=== PATIENT | male | born 1985 | race Caucasian/White ===

== ENCOUNTER 2024-11-27 19:28 | Emergency (ER) | payer MEDICAID ==
[~2024-11-27] VITALS: Ht 165.1 cm; Wt 73.0 kg
[2024-11-27 19:37] VITALS: O2SAT 99
[2024-11-27] MEDS ORDERED: LORAZEPAM 2MG/ML INJ IM STA (19:52)
[2024-11-27] MEDS: DIPHENHYDRAMINE 50MG/ML VIAL IM STA (20:28)
[2024-11-27] MEDS: HALOPERIDOL LACTATE 5MG/ML VIAL IM STA (20:29)
[2024-11-27] MEDS: LORAZEPAM 2MG/ML UD SYRINGE IM SCH (20:29)
[2024-11-27 20:50] LABS: BASOPHILS % 0.5 % (0.0-2.0); EOSINOPHILS % 3.7 % (0.0-5.0); HEMATOCRIT. 44.2 % (42.0-52.0); HEMOGLOBIN. 14.7 g/dL (14.0-18.0); LYMPHOCYTES % 16.7 % (20.0-50.0); MEAN CORPUSCULAR HEMOGLOBIN 30.3 pg (28.0-32.0); MEAN CORPUSCULAR HGB CONC 33.3 g/dL (31.0-37.0); MEAN CORPUSCULAR VOLUME 91.1 fL (80.0-94.0); MEAN PLATELET VOLUME 8.6 fl (7.4-10.4); MONOCYTES % 3.8 % (2.0-8.0); NEUTROPHILS % 75.3 % (40.0-76.0); PLATELET 221 x1000/uL (130-400); RED BLOOD CELL COUNT 4.85 mill/uL (4.7-6.1); RED CELL DISTRIBUTION WIDTH 14.1 % (11.6-14.6); WHITE BLOOD COUNT 8.8 x1000/uL (4.5-11.0)
[2024-11-27 20:55] LABS: CLARITY URINE CLEAR (CLEAR); COLOR URINE YELLOW (YELLOW); GLUCOSE URINE NEGATIVE (NEGATIVE); KETONES URINE NEGATIVE (NEGATIVE); LEUKOCYTE ESTERASE URINE NEGATIVE (NEGATIVE); NITRITE URINE NEGATIVE (NEGATIVE); OCCULT BLOOD URINE NEGATIVE (NEGATIVE); PH URINE 5.5 (4.5-8.0); PROTEIN URINE NEGATIVE (NEGATIVE); SPECIFIC GRAVITY URINE 1.006 (1.005-1.030); UROBILINOGEN URINE 0.2 E.U./dL (0.2-1.0)
[2024-11-27 20:55] LABS: CHLORIDE 108 mEq/L (98-107); POTASSIUM 3.8 mEq/L (3.5-5.1); SODIUM 145 mEq/L (136-145)
[2024-11-27 20:56] LABS: CARBON DIOXIDE 23 mEq/L (21-32)
[2024-11-27 21:01] LABS: CREATININE 1.1 mg/dL (0.6-1.3); GLUCOSE 89 mg/dL (70-105); UREA NITROGEN BLOOD 9 mg/dL (9-23)
[2024-11-27 21:10] LABS: *AMPHETAMINES SCREEN URINE NEGATIVE (NEGATIVE); *BARBITURATES SCREEN URINE NEGATIVE (NEGATIVE); *BENZODIAZEPINES SCREEN URINE PRESUMPTIVE POSITIVE (NEGATIVE); *COCAINE SCREEN URINE NEGATIVE (NEGATIVE); CANNABINOID URINE SCREEN PRESUMPTIVE POSITIVE (NEGATIVE); ECSTASY MDMA SCREEN URINE NEGATIVE (NEGATIVE); METHADONE URINE SCREEN NEGATIVE (NEGATIVE); OPIATES URINE SCREEN NEGATIVE (NEGATIVE); PHENCYCLIDINE URINE SCREEN NEGATIVE (NEGATIVE)
[2024-11-27 21:11] LABS: ETHANOL BLOOD 327 mg/dL (<10)
[2024-11-28 12:03] VITALS: BP 119/71; PULSE 75; RESP 13; TEMP 36.8; O2SAT 97
[2024-11-28] MEDS ORDERED: RISPERIDONE 0.5MG TABLET PO SCH (21:00)
== END 2024-11-28 13:35 ==
LOC: ER 19:28
DX: R45.851 Suicidal ideations (principal); F10.129 Alcohol abuse with intoxication, unspecified; F20.9 Schizophrenia, unspecified; Z79.899 Other long term (current) drug therapy; Z20.822 Contact with and (suspected) exposure to COVID-19; Y90.9 Presence of alcohol in blood, level not specified
CPT/HCPCS: 80305; 80048; 81003; 80320 ×2; 85025; 36415 ×2; 93005; 96372; 99285; 80307; 80329; 87426; J1200; J1630; J2060; Z7610; G0480